=== PATIENT | female | born 1990 ===

== ENCOUNTER 2024-11-13 13:55 | Emergency (ER) | payer MEDICAID ==
[~2024-11-13] VITALS: Ht 147.3 cm; Wt 116.0 kg
[2024-11-13] MEDS: LIDOcaine 5% patch TP SCH (16:00)
[2024-11-13] MEDS ORDERED: LIDO700A32 TOP (16:18)
[2024-11-13] MEDS ORDERED: CYCL-394 PO (16:18)
[2024-11-13] MEDS: ketorolac trometh 30MG/ML vial 30 MG/ML VIAL IM ONE (16:38)
[2024-11-13 16:49] VITALS: BP 132/86; PULSE 88; RESP 18; TEMP 98.8; O2SAT 98
== END 2024-11-13 16:50 | disposition home or self-care (01) ==
LOC: ER 13:55
DX: S39.012A Strain of muscle, fascia and tendon of lower back, initial encounter (principal); Z79.899 Other long term (current) drug therapy; X58.XXXA Exposure to other specified factors, initial encounter; Y93.89 Activity, other specified; Y92.89 Other specified places as the place of occurrence of the external cause; Y99.8 Other external cause status
CPT/HCPCS: 96372; 99283; J1885